=== PATIENT | female | born 1935 | race Caucasian/White ===

== ENCOUNTER → 2023-08-07 | Outpatient (REF) | payer OTHER | LOC: M LAB REF 12:05 | PROVIDERS: ATTEND Pathology Anatomic Pathology & Clinical Pathology | DX: C44.311 Basal cell carcinoma of skin of nose (principal) ==

== ENCOUNTER → 2023-10-24 | Outpatient (CLI) | payer OTHER, MEDICARE | LOC: M ONCR 13:23 | PROVIDERS: ATTEND General Practice | DX: C44.311 Basal cell carcinoma of skin of nose (principal); Z87.891 Personal history of nicotine dependence; Z71.2 Person consulting for explanation of examination or test findings ==